=== PATIENT | female | born 1995 | race Caucasian/White ===

== ENCOUNTER 2018-08-15 06:21 | Inpatient (IN) | payer MEDICAID ==
[~2018-08-15] VITALS: Ht 160 cm; Wt 109.1 kg
[2018-08-15] VITALS (13 sets, daily range): BP systolic 98–116; BP diastolic 55–66; PULSE 67–87; RESP 16–20; Ht 160 cm; Wt 109.1 kg
[~2018-08-15 06:21] MED LIST: PREN-46
[2018-08-15] MEDS ORDERED: METHYLERGONOVINE 0.2 MG INJ IM PRN ×2 (07:00→16:00)
[2018-08-15] MEDS ORDERED: OXYTOCIN 30 UNITS/LR 500 ML IV PRN ×2 (07:00→16:00)
[2018-08-15] MEDS ORDERED: MISOPROSTOL 200 MCG TAB PR PRN ×2 (07:00→16:00)
[2018-08-15] MEDS ORDERED: CARBOPROST 250 MCG INJ IM PRN ×2 (07:00→16:00)
[2018-08-15] MEDS ORDERED: OXYTOCIN 30 UNITS/LR 500 ML IV SCH (07:00)
[2018-08-15] MEDS ORDERED: CEFAZOLIN 2 GM/50 ML (PMX) 50 ML IVPB SCH (07:00)
[2018-08-15] MEDS: LACTATED RINGER'S 1,000 ML IV SCH ×2 (08:40→11:27)
--- NOTE | 2018-08-15 09:26 | PREAC ---
Date/Time of Note Date/Time of Note DATE: 08/15/18 TIME: 09:25 Anesthesia Eval and Record Evaluation Time Pre-Procedure Interview DATE: 08/15/18 TIME: 09:25 Age 22 Sex female NPO: 8 hrs Preoperative diagnosis repeat c section Planned procedure c section Past Medical History Past Medical History: None GI: Morbid obesity Surgery & Anesthesia Issues No known issue Meds Anticoagulation: No Beta Rakan within 24 hr: No Reason Beta Rakan not given: Pt. not on B-Rakan Reported Medications Vit #108/Iron/Fa ( ONE TABLET) 1 Each Tablet, 1 EACH .ROUTE DAILY, #1 10/20/12 Current Medications Lactated Ringer's 1,000 ml @ 125 mls/hr Q8H IV Last administered on 08/15/18at 08:40; Admin Dose 125 MLS/HR; Start 08/15/18 at 06:44 Cefazolin Sodium/ Dextrose 50 ml @ 100 mls/hr ONCE IVPB ; Start 08/15/18 at 07:00 Oxytocin/Lactated Ringer's 500 ml @ 125 mls/hr POST IV ; Start 08/15/18 at 07:00 Oxytocin/Lactated Ringer's 500 ml @ 0 mls/hr ONCE PRN IV .VAGINAL BLEEDING; Start 08/15/18 at 07:00 Methylergonovine Maleate (Methergine) 0.2 mg ONCE PRN IM .VAGINAL BLEEDING; Start 08/15/18 at 07:00 Carboprost Tromethamine (Hemabate) 250 mcg ONCE PRN IM .VAGINAL BLEEDING; Start 08/15/18 at 07:00 Misoprostol (Cytotec) 1,000 mcg ONCE PRN MI .VAGINAL BLEEDING; Start 08/15/18 at 07:00 Meds reviewed: Yes Allergies Coded Allergies: No Known Drug Allergies (Verified Allergy, Mild, 08/15/18) Allergies Reviewed: Yes Labs/Studies Labs Reviewed: Reviewed by anesthesiologist Result Diagram: 08/15/1843 Laboratory Tests 08/15/18 07:43 Blood Bank Test 08/15/18 07:43 Antibody Screen NEGATIVE Blood Type O POSITIVE Rh Immune Globulin Candidate NO test: Positive Studies: ECG (n/a), CXR (n/a) Pre-procedure Exam Last vitals Vital Signs Date Temp Pulse Resp B/P (MAP) Pulse Ox O2 O2 Flow FiO2 Time Delivery Rate 08/15/18 99.5 75 17 108/55 Room Air 07:07 (72) Airway: Adequate mouth opening Mallampati: Mallampati I Teeth: Normal Lung: Normal Heart: Normal ASA Physical Status ASA physical status: 3 Emergency: None Planned Anesthetic General/MAC: ETT Neuraxial: Spinal Nerve block: TAP (bilateral) Planned Pain Management Sub-arachniod narcotics, Single shot nerve block, Parenteral pain med Pre-operative Attestations Prior to commencing anesthesia and surgery, the patient was re-evaluated, there was verification of: *The patient's identity *The results of appropriate recent lab work and preoperative vital signs *The above evaluation not changing prior to induction *Anesthetic plan, risk benefits, alternative and complications discussed with patient/family; questions answered; patient/family understands, accepts and wishes to proceed. JYOTI LOUISE MD Aug 15, 2018 09:26
[2018-08-15] MEDS ORDERED: CITRIC ACID/NA CITRATE 30 ML CUP PO ONE (09:30)
[2018-08-15] MEDS ORDERED: OXYTOCIN 30 UNITS/LR 500 ML IV ONE ×2 (12:27→13:22)
[2018-08-15] MEDS ORDERED: ONDANSETRON 4 MG INJ ONE (12:28)
[2018-08-15] MEDS ORDERED: morphine SULFATE/PF (10 MG/10 ML) INJ ONE ×2 (12:28)
[2018-08-15] MEDS ORDERED: KETOROLAC 30 MG INJ ONE (12:28)
[2018-08-15] MEDS ORDERED: METOCLOPRAMIDE 10 MG INJ ONE (12:28)
--- NOTE | 2018-08-15 12:28 | HP ---
Date/Time of Note Date/Time of Note DATE: 08/15/18 TIME: 12:27 OB - History Hx of Present : 2 Para: 1 Care: Good Care Ultrasounds: Normal mid trimester US Obstetrical Complications: None Medical Complications: None Past Family/Social History * Past Medical, Surgical, Family and Obstetric Histories reviewed from chart. OB Admission Exam Vital Signs Vital Signs Vital Signs Date Temp Pulse Resp B/P (MAP) Pulse Ox O2 O2 Flow FiO2 Time Delivery Rate 08/15/18 99.5 75 17 108/55 Room Air 07:07 (72) Physical Exam HEENT: WNL Heart: Rhythm Normal Lungs: Clear, Equal Abdomen: WNL Extremities: Normal Reflexes: Normal Cervical Dilatation: None Effacement: 0% Station: Ballotable Membranes: Intact Heart Rate: 120's Accelerations: Accelerations Present Decelerations: No Decelerations Contractions on Admission: None Last 72 hours Lab Results CBC & BMP 08/15/18 07:43 OB Assessment/Plan Reason for admission: section Plan: Section SHELLY PALACIOS MD Aug 15, 2018 12:28
[2018-08-15] MEDS ORDERED: EPHEDrine SULFATE 50 MG/5 ML SYG ONE (12:30)
--- NOTE | 2018-08-15 13:45 | OPR ---
Operative Report Planned Procedure Procedure date Aug 15, 2018 Procedure(s) repeat c/s Performed by see signature line Landman: ILYA BAXTER M.D. Pre-procedure diagnosis term for repeat c/s [id number] Anesthesia Type: [id number] spinal Post-Procedure Post-procedure diagnosis term for repeat c/s Findings Live Baby [], Apgars [] and [], weight [], position [], [] presentation []cord. Estimated Blood Loss: 600 - 700 mls Specimen(s) none Grafts/Implant(s) none Complication(s) none Procedure Description Under satisfactory spinal anesthesia, the patient was prepped and draped and placed in a supine position, tilted to the left. Pfannenstiel incision was made, carried through the subcutaneous tissue. Bleeders brought under control with electrocautery. Fascia incised to the length of the incision. Rectus muscles from the fascia, divided midline. Peritoneum exposed, entered through a transverse incision. Exploration of abdomen revealed gravid uterus. Bladder flap was developed. Transverse incision was made in the lower segment of the uterus. Amniotic sac ruptured. clear [] amniotic fluid noted. [] Nasal oropharyngeal suction was performed. The baby was handed to the team for immediate attention. The placenta was delivered manually intact. Uterine cavity was cleaned with wet sponge and drainage established. Uterus closed in 2 layers using [one monocryl ] in continuous fashion. Peritoneal cavity irrigated with warm saline. Sponge, needle and instrument count reported to be correct. Abdominal peritoneum closed with [one monocryl] continuously]. Fascia closed w ith one monocryl [], and skin closed with lis. Estimated blood loss 700[]mL. SHELLY PALACIOS MD Aug 15, 2018 13:45
[2018-08-15] MEDS ORDERED: morphine (1 MG/ML) 10ML SYRINGE IV PRN ×3 (14:30)
[2018-08-15] MEDS ORDERED: ONDANSETRON 4 MG INJ IV PRN ×2 (14:30)
[2018-08-15] MEDS ORDERED: MEPERIDINE 25 MG INJ IV PRN (14:30)
[2018-08-15] MEDS ORDERED: morphine 2 MG INJ IV PRN ×3 (14:30)
[2018-08-15] MEDS ORDERED: NALOXONE (0.4 MG/ML) INJ IV PRN (14:30)
[2018-08-15] MEDS ORDERED: KETOROLAC 30 MG INJ IV PRN ×2 (14:30)
[2018-08-15] MEDS ORDERED: DIPHENHYDRAMINE 50 MG INJ IV PRN ×2 (14:30)
[2018-08-15] MEDS ORDERED: LACTATED RINGER'S 1,000 ML IV SCH (15:59)
[2018-08-15] MEDS ORDERED: CARBOPROST 250 MCG INJ ONE (16:00)
[2018-08-15] MEDS ORDERED: METHYLERGONOVINE 0.2 MG INJ ONE (16:00)
[2018-08-15] MEDS ORDERED: NACL 0.9% 3 ML SYG IV SCH (16:00)
[2018-08-15] MEDS ORDERED: NA PHOSPHATE/BIPHOS 133 ML ENEMA PR PRN (16:00)
[2018-08-15] MEDS ORDERED: HYDROCODONE/APAP (5/325) TAB PO PRN (16:00)
[2018-08-15] MEDS ORDERED: LANOLIN HPA 1 PKT TOP PRN (16:00)
[2018-08-15] MEDS: OXYTOCIN 30 UNITS/LR 500 ML IV SCH ×2 (16:41→21:58)
[2018-08-16 00:45] VITALS: BP 103/59; PULSE 75; RESP 18
[2018-08-16] MEDS ORDERED: LACTATED RINGER'S 1,000 ML IV PRN (03:30)
[2018-08-16 05:15] VITALS: BP 97/55; PULSE 84; RESP 19
[2018-08-16 07:30] VITALS: BP 99/49; PULSE 80; RESP 18
--- NOTE | 2018-08-16 08:13 | PAC ---
Date/Time of Note Date/Time of Note DATE: 08/16/18 TIME: 08:13 Post-Anesthesia Notes Post-Anesthesia Note Last documented vital signs Vital Signs Date Temp Pulse Resp B/P (MAP) Pulse Ox O2 O2 Flow FiO2 Time Delivery Rate 08/16/18 98.7 84 19 97/55 (69) 98 Room Air 05:15 Activity: WNL Respiratory function: WNL Cardiovascular function: WNL Mental status: Baseline Pain reasonably controlled: Yes Hydration appropriate: Yes Nausea/Vomiting absent: No JYOTI LOUISE MD August 16, 2018 08:13
--- NOTE | 2018-08-16 08:14 | OPPN ---
Date/Time of Note Date/Time of Note DATE: 08/16/18 TIME: 08:13 Anesthesia Follow up Anesthesia Follow up Last documented vital signs Vital Signs Date Temp Pulse Resp B/P (MAP) Pulse Ox O2 O2 Flow FiO2 Time Delivery Rate 08/16/18 98.7 84 19 97/55 (69) 98 Room Air 05:15 Respiratory function: WNL Cardiovascular function: WNL Comments A 22 year female pod#1 under spinal duramorph foe post op pain. No mpain, itching, N/V, headache, neural deficit. JYOTI LOUISE MD August 16, 2018 08:14
[2018-08-16] MEDS ORDERED: IBUPROFEN 800 MG TAB PO SCH (14:00)
[2018-08-16 15:58] VITALS: BP 100/58; PULSE 75; RESP 18
--- NOTE | 2018-08-16 18:10 | PN ---
Date/Time of Note Date/Time of Note DATE: 08/16/18 TIME: 18:08 OB Subjective Subjective Subjective POD#1 Patient is doing well. She denies nausea, vomiting, shortness of breath, chest pain, headache. She has been ambulating without difficulty, tolerating regular diet. Pain is well controlled on current medications OB Objective Objective Objective VS - Last 72 Hours, by Label Date Temp Pulse Resp B/P (MAP) Pulse Ox O2 O2 Flow FiO2 Time Delivery Rate 08/16/18 98.3 75 18 100/58 Room Air 15:58 (72) 08/16/18 99.1 80 18 99/49 (66) Room Air 07:30 08/16/18 98.7 84 19 97/55 (69) 98 Room Air 05:15 08/16/18 98.1 75 18 103/59 Room Air 00:45 (74) 08/15/18 80 19 116/55 95 Room Air 21:20 (75) 08/15/18 87 19 115/60 21:05 (78) 08/15/18 80 19 110/55 94 Room Air 20:58 (73) 08/15/18 80 19 110/57 94 20:53 (74) 08/15/18 98.3 77 19 98/55 (69) Room Air 20:00 08/15/18 98.0 78 18 109/59 97 Room Air 17:00 (76) 08/15/18 98.2 75 20 113/58 98 Room Air 16:00 (76) 08/15/18 76 18 110/62 98 Room Air 15:36 (78) 08/15/18 68 18 108/60 98 Room Air 15:20 (76) 08/15/18 67 18 110/60 Room Air 15:00 (77) 08/15/18 71 18 108/66 100 Room Air 14:45 (80) 08/15/18 98.5 77 16 103/60 98 Room Air 14:30 (74) 08/15/18 99.5 75 17 108/55 Room Air 07:07 (72) General: AAO X 3, comfortable, NAD, appropriate mood and affect. ABD: +BS. Soft, non-tender. Uterus 2 cm below umbilicus Incision: Clear, dry, intact. No erythema, drainage or induration. Flank: No CVA tenderness (B/L) LE: Mild edema. No clubbing, cyanosis, thigh or calf tenderness (B/L). Homans 'sign is negative OB Assessment/Plan Other plan: 82 years old 2 para 2-0-0-2 s/p delivery POD#1 - AF, VSS - Contraception methods with R/B/A/FR discussed - Continue care - Follow up with primary OB CHRISTIANE QUIÑONEZ August 16, 2018 18:10
[2018-08-16 19:40] VITALS: BP 107/59; PULSE 84; RESP 18
[2018-08-16] MEDS: IBUPROFEN 800 MG TAB PO SCH (21:47)
[2018-08-17 04:00] VITALS: BP 102/51; PULSE 71; RESP 18
[2018-08-17] MEDS: IBUPROFEN 800 MG TAB PO SCH ×3 (05:35→21:51)
[2018-08-17 08:00] VITALS: BP 98/60; PULSE 67; RESP 16
--- NOTE | 2018-08-17 13:44 | DS ---
Date/Time of Note Date/Time of Note DATE: 08/17/18 TIME: 13:44 Discharge Summary Admission/Discharge Info Admit Date/Time Aug 15, 2018 at 06:21 Discharge Date/Time Discharge Diagnosis term Patient Condition: Stable Hospital Course unremarkable Home Meds Reported Medications Vit #108/Iron/Fa ( ONE TABLET) 1 Each Tablet, 1 EACH .ROUTE DAILY, #1 10/20/12 Primary Care Provider Not On Staff Doctor SHELLY PALACIOS MD August 17, 2018 13:44
--- NOTE | 2018-08-17 13:44 | QN ---
Documentation Comment doing well vss abd soft d/c home next am. SHELLY PALACIOS MD August 17, 2018 13:44
[2018-08-17 16:05] VITALS: BP 105/59; PULSE 70; RESP 20
[2018-08-17 19:50] VITALS: BP 105/63; PULSE 75; RESP 18
[2018-08-18 04:30] VITALS: BP 104/62; PULSE 81; RESP 16
[2018-08-18] MEDS: IBUPROFEN 800 MG TAB PO SCH ×2 (06:08→14:28)
[2018-08-18 07:30] VITALS: BP 119/71; PULSE 74; RESP 18
[2018-08-18] MEDS ORDERED: DIPHTH/TET/ACEL PERTUSS (ADULT) 0.5 ML VIAL IM* ONE (09:00)
[2018-08-18] MEDS ORDERED: MEASLES,MUMPS,RUBELLA VACCINE INJ SC* ONE (09:00)
--- NOTE | 2018-08-18 19:13 | PD.PPDC ---
[employer] Discharge Instruction Diagnosis [id number] Final Diagnosis: Yccnx7f S/P RC/S Condition [id number] Patient Condition: Faxdo2t Stable Diet Zksjt1Ws Diet: Idriz0w Resume Regular Diet Activity/Restrictions [id number] Activity: Ugayf3c May Shower Tbief0Jc Restrictions: Agnpq0n No Lifting No Sexual Activity Nothing in the Vagina No [place] No Tampons, douche Wound/Drain Care Instructions [id number] Wound/Drain Care Instructions: Drcqo8m Wash with soap and water Keep clean and dry Follow-up Follow-up with Physician: Week/Weeks Return to clinic for Krxha9Lz [facility] Instructions: Rbclo7j Fever greater than 101 Chills Worsening abdominal pain Excessive Vaginal Bleeding More than 2 pads per hour Unable to tolerate diet Dnjav3Do OB Instructions: Gnhky2b Breast Tenderness Depression Blurried Vision Headache Vatcq6Of Surgical Instructions: Skmbv2x Incisional Drainage Incisional Redness MARC KENYON MD August 18, 2018 19:13
--- NOTE | 2018-08-18 19:15 | DS ---
Date/Time of Note Date/Time of Note DATE: 08/18/18 TIME: 19:14 Obstetrical Discharge Record Final Diagnosis Final Diagnosis: Term delivered Section Section: Repeat Complications Augmentation: No Induction: No Rupture of Membranes: No Condition on Discharge Physical Assessment Last Vitals: VSS afebrile Voiding: Yes Bowel Movement: Yes Breast: Soft, non-tender Fundus: Firm Abdomen and Incision: soft wound dry healing Episiotomy: n/a Calf Tenderness: No Patient Condition: Stable MARC KENYON MD August 18, 2018 19:15
--- NOTE | 2018-08-19 16:56 | DELSUM ---
Delivery Summary A-C Datetime Report Generated by CPN: 08/19/2018 16:56 DELIVERY PERSONNEL Protocol Officer: Mathew, Jordyn MATERNAL INFORMATION Delivery Anesthesia: Spinal Medications in Delivery: see anesthesia record Delivery QBL (ml): 500 Placenta Cultured: No Maternal Complications: None LABOR SUMMARY EDC: 08/20/2018 00:00 No. Babies in Womb: 1 Attempted: No Labor Anesthesia: None LABOR INFORMATION Reason for Induction: Not Applicable Oxytocin: N/A Group B Beta Strep: Negative Antibiotics # of Doses: Ancef 2 grams x1 Antibiotics Time of Last Dose: 08/15/2018 12:39 Steroids Given: None Reason Steroids Not Administered: Not Applicable MEMBRANES Membranes Rupture Method: Artificial Rupture of Membranes: 08/15/2018 12:56 Length of Rupture (hr): 0.02 Amniotic Fluid Color: Clear Amniotic Fluid Amount: Moderate Amniotic Fluid Odor: None STAGES OF LABOR Stage 3 hr: 0 Stage 3 min: 1 CSECTION DELIVERY Primary Indication: Repeat Elective Secondary Indication: N/A CSection Urgency: Elective CSection Incidence: Repeat Labor: No Labor Elective: Elective CSection Incision: Lower Uterine Transverse BABY A INFORMATION Infant Delivery Date/Time: 08/15/2018 12:57 Method of Delivery: Born in Route : No : N/A Forceps: N/A Vacuum Extraction: N/A Shoulder Dystocia : N/A SHOULDER DYSTOCIA BABY A Delivery Date/Time: 08/15/2018 12:57 PRESENTATION/POSITION BABY A Presentation: Cephalic Cephalic Presentation: Vertex Vertex Position: Right Occipital Posterior Breech Presentation: N/A PLACENTA INFORMATION BABY A Placenta Delivery Time : 08/15/2018 12:58 Placenta Method of Delivery: Manual Removal Placenta Status: Delivered SCORES BABY A Heart Rate 1 min: >100 bpm Resp Effort 1 min: Good Cry Reflex Irritability 1 min: Cough/Sneeze/Pulls Away Muscle Tone 1 min: Active Motion Color 1 min: Body [place], Extremit Blue Resuscitation Effort 1 min: Tactile Stimulation SCORE 1 MIN: 9 Heart Rate 5 min: >100 bpm Resp Effort 5 min: Good Cry Reflex Irritability 5 min: Cough/Sneeze/Pulls Away Muscle Tone 5 min: Active Motion Color 5 min: Body [place], Extremit Blue Resuscitation Effort 5 min: Tactile Stimulation SCORE 5 MIN: 9 INFANT INFORMATION BABY A Gestational Age at Delivery: 39.2 Gestational Status: Full Term- 39- 40.6 Weeks Infant Outcome : Liveborn Condition : Stable Sex: Male IDENTIFICATION/MEDS BABY A ID Band Number: [id number] ID Band Location: Right Leg; Left Arm Sensor Applied: Yes Sensor Number: [id number] Sensor Location : Cord Clamp Vitamin K Given : Not Given Erythromycin Given: Not Given WEIGHT/LENGTH BABY A Birthweight (gm): 3480 Weight (lb): 7 Infant Weight (oz): 11 Infant Length (in): 21.00 Length (cm): 53.34 CORD INFORMATION BABY A No. Cord Vessels: 3 Nuchal Cord : Around Neck x1, Loose Cord Blood Taken: Yes Suction: Mouth; Nose ASSESSMENT BABY A Infant Complications: None Physical Findings at Delivery: Within Normal Limits Respirations: Appears Normal Clinical Laboratory Technician/ALS Called : No Infant Care By: Enriqueta JOHNSON/Jake CORONA Transferred To: Remains with Mother
== END 2018-08-18 16:40 | disposition home or self-care (01) | DRG 788 ==
LOC: L-D 06:21 → PP1 15:54
PROVIDERS: ADMIT Obstetrics & Gynecology; ATTEND Obstetrics & Gynecology
PROC: 10D00Z1 Extraction of Products of Conception, Low, Open Approach (ICD-10-PCS; principal; 2018-08-15 10:00)
DX: O34.211 Maternal care for low transverse scar from previous cesarean delivery (principal); Z3A.39 39 weeks gestation of pregnancy; Z37.0 Single live birth
CPT/HCPCS: 85025; 85610; 85730; 86592; 86850; 86900; 86901; 87340; 99464; J0690; J1885; J2210; J2270; J2274; J2405; J2590; J2765; J7120